=== PATIENT | male | born 1990 | race African-American/Black ===

== ENCOUNTER 2020-10-29 22:13 | Emergency (ER) | payer OTHER ==
[~2020-10-29] VITALS: Ht 33 cm; Wt 0.5 kg
[2020-10-29 23:25] LABS: PLATELET COUNT 178 K/uL (142-355)
[2020-10-29 23:32] LABS: POTASSIUM 3.6 mmol/L (3.6-5.2)
[2020-10-30 00:30] VITALS: BP 131/80; TEMP 98
== END 2020-10-30 00:51 | disposition home or self-care (01) ==
LOC: ED 22:13
PROVIDERS: Hospitalist
DX: N13.2 Hydronephrosis with renal and ureteral calculous obstruction (principal); R11.2 Nausea with vomiting, unspecified; Z87.442 Personal history of urinary calculi
CPT/HCPCS: 80053; 81000; 83690; 85027; 96360; 96372; 96375; 99284; J0696; J1170; J1885; J2405